=== PATIENT | male | born 1995 | race American Indian/Alaskan Native ===

== ENCOUNTER 2018-05-12 11:45 | Emergency (ER) | payer OTHER ==
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
[2018-05-12 14:33] VITALS: BP 111/75
== END 2018-05-12 14:31 | disposition home or self-care (01) ==
LOC: ED 11:45
DX: S16.1XXA Strain of muscle, fascia and tendon at neck level, initial encounter (principal); F20.9 Schizophrenia, unspecified; F10.920 Alcohol use, unspecified with intoxication, uncomplicated; M79.10 Myalgia, unspecified site; V49.59XA Passenger injured in collision with other motor vehicles in traffic accident, initial encounter; Y93.89 Activity, other specified; Y92.488 Other paved roadways as the place of occurrence of the external cause; Y99.8 Other external cause status
CPT/HCPCS: 99283